=== PATIENT | female | born 2000 | race American Indian/Alaskan Native ===

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

== ENCOUNTER 2019-03-04 01:58 | Emergency (ER) | payer BC, OTHER ==
[2019-03-04 02:05] VITALS: BP 153/81
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
== END 2019-03-04 05:57 | disposition home or self-care (01) ==
LOC: ED 01:58
DX: M25.511 Pain in right shoulder (principal); J45.909 Unspecified asthma, uncomplicated; K21.9 Gastro-esophageal reflux disease without esophagitis; Z79.899 Other long term (current) drug therapy; V89.2XXA Person injured in unspecified motor-vehicle accident, traffic, initial encounter; Y93.89 Activity, other specified; Y92.488 Other paved roadways as the place of occurrence of the external cause; Y99.8 Other external cause status
CPT/HCPCS: 99283

== ENCOUNTER 2020-03-09 12:05 | Outpatient (CLI) | payer BC, OTHER | END 2020-03-09 12:06 | disposition home or self-care (01) | LOC: LAB 12:05 | PROVIDERS: ATTEND Nurse Practitioner Women's Health | DX: N92.5 Other specified irregular menstruation (principal) | CPT/HCPCS: 36415; 84702; 86900; 86901 ==

== ENCOUNTER 2020-03-10 16:03 | Emergency (ER) | payer BC, OTHER ==
--- NOTE | 2020-03-10 17:08 | Emergency Department Report ---
Blank Doc - Documentation Documentation: 19-year-old female that presents with vaginal bleeding and pelvic pain. staed is unsure how far along she is. This initial assessment/diagnostic orders/clinical plan/treatment(s) is/are subject to change based on patient's health status, clinical progression and re-assessment by fellow clinical providers in the ED. Further treatment and workup at subsequent clinical providers discretion. Patient/guardians urged not to elope from the ED as their condition may be serious if not clinically assessed and managed. Initial orders include: 1- Patient sent to [facility] for further evaluation and treatment 2- labs 3- UA 4- US OB
[2020-03-10 17:09] VITALS: BP 131/79
--- NOTE | 2020-03-10 18:33 | Ultrasound Report ---
FIRSTTRIMESTER OBSTETRIC ULTRASOUND HISTORY: Provided clinical history of vaginal bleeding COMPARISON: None. TECHNIQUE: Routine transabdominal and transvaginal OB ultrasound performed. FINDINGS: Uterus: Measures 3.6 x 5.0 x 5.2 cm. 10 mm endometrial thickness. Gestational Sac: 4 mm intrauterine cystic focus possibly representing a gestational sac. No definite intrauterine identified. Yolk Sac: Not visualized. Fetus/Embryo: Not visualized. Embryonic/ cardiac activity: None present. Placenta: Not visualized. Amniotic fluid volume: Subjectively appropriate for gestational age. Ovaries: The right ovary measures 3.9 x 2.3 x 2.8 cm. There is a possible 1.9 cm complex right ovari an focus which is difficult to separate from the normal ovarian parenchyma. Clinical significance unc ertain. The left ovary is normal in size and appearance with normal blood flow, measuring 3.0 x 1.6 x 2.1 cm. No definite corpus luteum identified. Additional findings: None. IMPRESSION Small intrauterine cystic focus possibly representing a gestational sac with ultrasound age of 5 week s and 1 day by gestational sac diameter. No definite embryonic structures are identified. Given this, ectopic cannot be fully excluded. Recommend short-term follow-up and serial beta hCG measu rements. Signer Name: Catalino Blackman MD Signed: 03/10/2020 6:28 PM Workstation Name: [id number]
[2020-03-10 19:26] LABS: Basophils % (Auto) 0.4 % (0.0-1.8); Eosinophils # (Auto) 0.1 K/mm3 (0.0-0.4); Eosinophils % (Auto) 0.8 % (0.0-4.3); Hematocrit 37.3 % (30.3-42.9); Hemoglobin 11.6 gm/dl (10.1-14.3); Lymphocytes # (Auto) 1.5 K/mm3 (1.2-5.4); Lymphocytes % (Auto) 13.1 % (13.4-35.0); Mean Corpuscular HGB Conc 31 % (30-34); Mean Corpuscular Volume 72 fl (79-97); Monocytes # (Auto) 0.6 K/mm3 (0.0-0.8); Platelet Count 350 K/mm3 (140-440); Red Blood Count 5.21 M/mm3 (3.65-5.03); Red Cell Distribution Width 14.9 % (13.2-15.2)
== END 2020-03-10 19:30 | disposition left against medical advice (07) ==
LOC: ED 16:03
DX: R10.2 Pelvic and perineal pain (principal); Z53.21 Procedure and treatment not carried out due to patient leaving prior to being seen by health care provider
CPT/HCPCS: 36415; 76801; 76817; 84702; 85025; 86900; 86901

== ENCOUNTER 2020-07-23 14:31 | Outpatient (CLI) | payer BC, OTHER | END 2020-07-23 14:32 | disposition home or self-care (01) | LOC: LAB 14:31 | PROVIDERS: ATTEND Nurse Practitioner Women's Health | DX: Z34.02 Encounter for supervision of normal first pregnancy, second trimester (principal); Z3A.15 15 weeks gestation of pregnancy | CPT/HCPCS: 36415; 82106 ==

== ENCOUNTER 2020-11-25 12:10 | Outpatient (CLI) | payer BC ==
[2020-11-30 09:08] LABS: HIV-2 Antibody Differentiation SEE SCANNED RESULT
[2020-11-30 09:09] LABS: HIV-1 Antibody Differentiation SEE SCANNED RESULT
== END 2020-11-25 12:11 | disposition home or self-care (01) ==
LOC: LAB 12:10
PROVIDERS: ATTEND Obstetrics & Gynecology
DX: Z34.03 Encounter for supervision of normal first pregnancy, third trimester (principal); Z3A.35 35 weeks gestation of pregnancy
CPT/HCPCS: 36415; 86592; 86689; 87116; 87591

== ENCOUNTER 2020-12-24 10:03 | Outpatient (CLI) | payer BC, MEDICAID | END 2020-12-24 15:59 | disposition home or self-care (01) | LOC: TRG 10:03 → APU 10:46 | CPT/HCPCS: 59025 ==

== ENCOUNTER 2020-12-25 01:29 | Inpatient (IN) | payer MEDICAID ==
[2020-12-25] MEDS ORDERED: ONDANSETRON 4 MG/2 ML INJ IV PRN ×2 (03:39→21:25)
[2020-12-25] MEDS ORDERED: OXYTOCIN 10 UNIT/1 ML INJ IM PRN (03:39)
[2020-12-25] MEDS ORDERED: ACETAMINOPHEN 325 MG TAB PO PRN (03:39)
[2020-12-25] MEDS ORDERED: fentaNYL 100 MCG/2 ML INJ IV PRN (03:39)
[2020-12-25] MEDS ORDERED: METHYLERGONOVINE MALEATE 0.2 MG/ML VIAL IM PRN (03:39)
[2020-12-25] MEDS ORDERED: TERBUTALINE 1 MG/1 ML INJ SUB-Q PRN (03:39)
[2020-12-25] MEDS ORDERED: NalbUPHINE 10 MG/1 ML INJ IV PRN (03:39)
[2020-12-25] MEDS ORDERED: LIDOCAINE (2%) 20 MG/1 ML VIAL 20 ML MDV INFILTRATI ONE (03:39)
[2020-12-25] MEDS ORDERED: NALOXONE 0.4 MG/1 ML INJ IV PRN (03:39)
[2020-12-25] MEDS ORDERED: ePHEDrine SULFATE 50 MG/1 ML INJ IV PRN ×2 (03:39→10:02)
[2020-12-25] MEDS ORDERED: MINERAL OIL 30 ML ORAL LIQD PO PRN (03:39)
--- NOTE | 2020-12-25 03:50 | History and Physical Report ---
History of Present Illness Date of examination: 12/25/20 Date of admission: 12/25/2020 Chief complaint: "my water broke" History of present illness: EDC Confirmation: 12/24/2020 Gestational Age: 40 1/7 weeks Past History : 2 Term Births: 0 Premature Births: 0 Living Children: 0 Para: 0 Mult. Births: 0 Prev : 0 Prev. attempt? 0 Aborta: 1 Elect. Ab: 0 Spont. Ab: 1 Ectopics: 0 # 1 Delivery date: 03/2020 Delivery type: SAB Past Medical History: Reviewed history from 03/09/2020 and no changes required: Asthma Past Surgical History: Reviewed history from 03/09/2020 and no changes required: Negative Past Surgical History Past Medical History Abnormal PAP: negative XIOMARA Exposure: negative Infertility: negative Uterine Anomaly: negative Uterine Surgery (not C/S): negative Other Gynecologic Problems: negative Social Hx: Patient is single works [place] Smoking History: Patient has never smoked. Infection History Hx of STD: chlamydia HIV Risk Eval: low risk Hepatitis B Risk Eval: low risk Personal hx. of genital herpes: no Partner hx. of genital herpes: no Varicella/Chicken Pox Status: Immunized TB Risk: no Genetic History Congenital Heart Defect: Mom: no Dad: no Oksana Disease: Mom: no Dad: no Thalassemia Mom: no Dad: no Neural Tube Defect Mom: no Dad: no Down's Syndrome Mom: yes Dad: no Darius-Sachs Mom: no Dad: no Sickle Cell Disease/Trait Mom: no Dad: no Hemophilia Mom: no Dad: no Muscular Dystrophy Mom: no Dad: no Cystic Fibrosis Mom: no Dad: no [place] Chorea Mom: no Dad: no Mental Retardation Mom: no Dad: no Fragile X Mom: no Dad: no Other Genetic/Chromosomal Disorder Mom: no Dad: no Child w/other defect Mom: no Dad: no Enviromental Exposures Xray Exposure: no Medication, drug, or alcohol use since LMP: no Chemical/Other Exposure: no Exposure to Cat Liter: no Hx of Parvovirus (Fifth Disease): no Occupational Exposure to Children: none Active Medications: VITAMINS () Current Allergies: * SHELLFISH (Critical) Past History Past Medical History: asthma (see HPI) Past Surgical History: no surgical history (see HPI) 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) Family/Genetic History: other (see HPI) Social history: no significant social history (see HPI), single - Obstetrical History Expected Date of Delivery: 12/24/20 Actual Gestation: 40 Week(s) 1 Day(s) : 2 Para: 0 Hx # Term Pregnancies: 0 Number of Pregnancies: 0 Spontaneous Abortions: 1 Induced : 0 Number of Living Children: 0 Medications and Allergies Allergies Allergy/AdvReac Type Severity Reaction Status Date / Time No Known Allergies Allergy Verified 03/04/19 02:03 Home Medications Medication Instructions Recorded Confirmed Last Taken Type Ketorolac [Toradol] 10 mg PO Q6H PRN #15 tablet 03/04/19 12/24/20 Unknown Rx methOCARBAMOL [Robaxin] 750 mg PO Q8H PRN #21 tablet 03/04/19 12/24/20 Unknown Rx Review of Systems All systems: negative Genitourinary: leakage of fluid, contractions - Vital Signs Vital signs: Vital Signs Pulse BP Pulse Ox 78 138/87 100 12/25/20 01:51 12/25/20 01:51 12/25/20 01:51 Temp Pulse Resp BP Pulse Ox 98.5 F 86 18 138/87 100 12/25/20 01:52 12/25/20 03:36 12/25/20 01:52 12/25/20 01:52 12/25/20 03:36 - Physical Exam Breasts: Positive: deferred Cardiovascular: Regular rate Lungs: Positive: Normal air movement Abdomen: Positive: normal appearance, soft Genitourinary (Female): Positive: normal external genitalia, normal perenium Vulva: both: normal Vagina: Positive: normal moisture Uterus: Positive: normal size, normal contour Anus/Rectum: Positive: normal perianal skin Extremities: Positive: normal - Obstetrical FHR: auscultation normal, category 1 Uterine Contraction Monitor Mode: External Cervical Dilatation: 1 (per Celsa AGRAWAL) Cervical Effacement Percentage: 70 station: -3 Uterine Contraction Frequency (min): 3-4 Uterine Contraction Pattern: Regular Uterine Tone Measurement Phase: Resting Results Abnormal lab results 12/25/20 Range/Units 02:06 Membranes Rupture Positive A (Negative) All other labs normal. GBS NEGATIVE on 12/02/20 Tests: (1) Profile I ([id number]) Order Note: Clinical Information: SRC:UR HBsAg Screen Negative Negative *1 RPR Non Reactive Non Reactive *2 Rubella Antibodies, IgG 1.35 index Immune >0.99 *3 Non-immune <0.90 Equivocal 0.90 - 0.99 Immune >0.99 ABO Grouping A *4 Rh Factor Positive *5 Please note: Prior records for this patient's ABO / Rh type are not available for additional verification. Antibody Screen Negative Negative *6 WBC 8.5 x10E3/uL 3.4-10.8 *7 RBC 5.14 x10E6/uL 3.77-5.28 *8 Hemoglobin 11.1 g/dL 11.1-15.9 *9 Hematocrit 37.3 % 34.0-46.6 *10 MCV [L] 73 fL 79-97 *11 MCH [L] 21.6 pg 26.6-33.0 *12 MCHC [L] 29.8 g/dL 31.5-35.7 *13 RDW 14.8 % 11.7-15.4 *14 Platelets 315 x10E3/uL 150-450 *15 Neutrophils 80 % Not Estab. *16 Lymphs 14 % Not Estab. *17 Monocytes 5 % Not Estab. *18 Eos 1 % Not Estab. *19 Basos 0 % Not Estab. *20 ! Immature Cells <No Reported Value> *21 Neutrophils (Absolute) 6.7 x10E3/uL 1.4-7.0 *22 Lymphs (Absolute) 1.2 x10E3/uL 0.7-3.1 *23 Monocytes(Absolute) 0.5 x10E3/uL 0.1-0.9 *24 Eos (Absolute) 0.1 x10E3/uL 0.0-0.4 *25 Baso (Absolute) 0.0 x10E3/uL 0.0-0.2 *26 ! Immature Granulocytes 0 % Not Estab. *27 ! Immature Grans (Abs) 0.0 x10E3/uL 0.0-0.1 *28 ! NRBC <No Reported Value> *29 Hematology Comments: <No Reported Value> *30 Tests: (2) HIV Ag/Ab with Reflex ([id number]) HIV Screen 4th Generation wRfx Non Reactive Non Reactive *31 Tests: (3) Gest. Diabetes 1-Hr Screen ([id number]) ! Gestational Diabetes Screen 83 mg/dL 65-139 *32 According to ADA, a glucose threshold of >139 mg/dL after 50-gram load identifies approximately 80% of women with gestational diabetes mellitus, while the sensitivity is further increased to approximately 90% by a threshold of >129 mg/dL. Tests: (4) HCV Antibody reflex to MAYLIN ([id number]) ! HCV Ab 0.1 s/co ratio 0.0-0.9 *33 Tests: (5) Interpretation: ([id number]) ! Interpretation: SPRCS *34 Negative Not infected with HCV, unless recent infection is suspected or other evidence exists to indicate HCV infection. Tests: (6) Urine Culture, Routine ([id number]) Urine Culture, Routine Final report *35 Tests: (7) Result ([id number]) ! Result 1 "Result Below..." *36 RESULT: Lactobacillus species Susceptibility not normally performed on this organism. 50,000-100,000 colony forming units per mL Assessment and Plan @ 40.1 wks EGA presents to triage with c/o SROM clear fluid @00:50 approx tonight and regular contractions. 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 CNM to bedside; Cat 1 FHT's, ctxq3-4mins. POC d/w pt and support person. Risks of rupture and benefits of labor augmentation discussed. Pt declines augmentation and verbalizes she would like to see if her body progresses on its own at this time. Orders placed in EMR. - Patient Problems (1) SROM (spontaneous rupture of membranes) Current Visit: Yes Status: Acute Plan to address problem: limit vaginal exams VS per protocol admit to labor draw labs and start IV anticipate (2) Active labor at term Current Visit: Yes Status: Acute (3) 40 weeks gestation of Current Visit: Yes Status: Acute (4) Asthma Current Visit: Yes Status: Acute
[2020-12-25] MEDS ORDERED: OXYTOCIN DRIP 30 UNITS/500 ML BAG IV SCH ×3 (04:00→22:00)
[2020-12-25 04:10] LABS: Hematocrit 32.4 % (30.3-42.9); Hemoglobin 10.5 gm/dl (10.1-14.3); Mean Corpuscular HGB Conc 32 % (30-34); Platelet Count 198 K/mm3 (140-440); Red Blood Count 4.78 M/mm3 (3.65-5.03); Red Cell Distribution Width 15.2 % (13.2-15.2)
[2020-12-25 04:29] LABS: Mean Corpuscular Volume 68 fl (79-97)
[2020-12-25] MEDS: LACTATED RINGERS 1,000 ML IV SCH ×3 (06:39→13:13)
--- NOTE | 2020-12-25 08:02 | Progress Note ---
Assessment and Plan A: 20 y.o. @ 40.1 wks, SROM clear fluid @ 0150 am. Cervical exam /-2. Epidural placed. P: Will start Pitocin per protocol. Continue to monitor fluid color and patient's temperature since SROM. Anticipate . Subjective - Subjective Date of service: 12/25/20 (Epidural has been placed. ) Principal diagnosis: IUP @ 40.1 wks, SROM @ 0150 am, clear fluid Patient reports: contractions (Still feeling some ctxs. ) Objective - Vital Signs Vital Signs: Vital Signs - 12hr 12/25/20 12/25/20 12/25/20 01:51 01:52 01:56 Temperature 98.5 F Pulse Rate 78 79 81 Respiratory 18 Rate Blood Pressure 138/87 Blood Pressure 138/87 [Right] O2 Sat by Pulse 100 99 99 Oximetry 12/25/20 12/25/20 12/25/20 02:01 02:06 02:11 Temperature Pulse Rate 76 77 81 Respiratory Rate Blood Pressure Blood Pressure [Right] O2 Sat by Pulse 100 100 100 Oximetry 12/25/20 12/25/20 12/25/20 02:16 02:21 02:26 Temperature Pulse Rate 73 74 80 Respiratory Rate Blood Pressure Blood Pressure [Right] O2 Sat by Pulse 100 99 100 Oximetry 12/25/20 12/25/20 12/25/20 02:31 02:36 02:41 Temperature Pulse Rate 81 83 83 Respiratory Rate Blood Pressure Blood Pressure [Right] O2 Sat by Pulse 100 100 99 Oximetry 12/25/20 12/25/20 12/25/20 02:46 02:51 02:56 Temperature Pulse Rate 74 74 77 Respiratory Rate Blood Pressure Blood Pressure [Right] O2 Sat by Pulse 100 100 99 Oximetry 12/25/20 12/25/20 12/25/20 03:01 03:06 03:11 Temperature Pulse Rate 82 76 78 Respiratory Rate Blood Pressure Blood Pressure [Right] O2 Sat by Pulse 97 100 100 Oximetry 12/25/20 12/25/20 12/25/20 03:16 03:21 03:26 Temperature Pulse Rate 69 78 85 Respiratory Rate Blood Pressure Blood Pressure [Right] O2 Sat by Pulse 99 100 100 Oximetry 12/25/20 12/25/20 12/25/20 03:36 03:46 04:44 Temperature 99.2 F Pulse Rate 86 83 74 Respiratory Rate Blood Pressure Blood Pressure [Right] O2 Sat by Pulse 100 99 Oximetry 12/25/20 12/25/20 12/25/20 04:49 04:54 04:59 Temperature Pulse Rate 73 72 85 Respiratory Rate Blood Pressure Blood Pressure [Right] O2 Sat by Pulse 99 98 99 Oximetry 12/25/20 12/25/20 12/25/20 05:04 05:09 05:14 Temperature Pulse Rate 75 75 71 Respiratory Rate Blood Pressure Blood Pressure [Right] O2 Sat by Pulse 99 99 99 Oximetry 12/25/20 12/25/20 12/25/20 05:19 05:24 05:29 Temperature Pulse Rate 67 61 67 Respiratory Rate Blood Pressure Blood Pressure [Right] O2 Sat by Pulse 99 100 98 Oximetry 12/25/20 12/25/20 12/25/20 05:34 05:39 05:44 Temperature Pulse Rate 75 64 76 Respiratory Rate Blood Pressure Blood Pressure [Right] O2 Sat by Pulse 99 100 100 Oximetry 12/25/20 12/25/20 12/25/20 05:49 05:54 05:59 Temperature Pulse Rate 68 63 79 Respiratory Rate Blood Pressure Blood Pressure [Right] O2 Sat by Pulse 100 99 100 Oximetry 12/25/20 12/25/20 12/25/20 06:04 06:18 06:23 Temperature Pulse Rate 71 95 H 85 Respiratory Rate Blood Pressure Blood Pressure [Right] O2 Sat by Pulse 99 99 100 Oximetry 12/25/20 12/25/20 12/25/20 06:28 06:33 06:38 Temperature Pulse Rate 82 94 H 85 Respiratory Rate Blood Pressure Blood Pressure [Right] O2 Sat by Pulse 100 100 100 Oximetry 12/25/20 12/25/20 12/25/20 06:43 06:48 06:53 Temperature Pulse Rate 79 97 H 102 H Respiratory Rate Blood Pressure Blood Pressure [Right] O2 Sat by Pulse 100 100 100 Oximetry 12/25/20 12/25/20 12/25/20 06:58 07:03 07:08 Temperature Pulse Rate 96 H 86 95 H Respiratory Rate Blood Pressure Blood Pressure [Right] O2 Sat by Pulse 99 100 100 Oximetry 12/25/20 12/25/20 12/25/20 07:13 07:18 07:19 Temperature Pulse Rate 105 H 99 H 96 H Respiratory Rate Blood Pressure 154/101 Blood Pressure [Right] O2 Sat by Pulse 100 99 Oximetry 12/25/20 12/25/20 12/25/20 07:23 07:28 07:31 Temperature Pulse Rate 97 H 101 H 113 H Respiratory Rate Blood Pressure 145/69 Blood Pressure [Right] O2 Sat by Pulse 99 100 Oximetry 12/25/20 12/25/20 12/25/20 07:33 07:35 07:37 Temperature Pulse Rate 92 H 77 91 H Respiratory Rate Blood Pressure 136/61 123/79 135/78 Blood Pressure [Right] O2 Sat by Pulse 100 Oximetry 12/25/20 12/25/20 12/25/20 07:38 07:39 07:41 Temperature Pulse Rate 77 93 H 90 Respiratory Rate Blood Pressure 144/78 131/74 Blood Pressure [Right] O2 Sat by Pulse 99 Oximetry 12/25/20 12/25/20 12/25/20 07:43 07:45 07:47 Temperature Pulse Rate 95 H 74 73 Respiratory Rate Blood Pressure 146/80 133/62 132/66 Blood Pressure [Right] O2 Sat by Pulse 100 Oximetry 12/25/20 12/25/20 12/25/20 07:48 07:49 07:51 Temperature Pulse Rate 73 70 73 Respiratory Rate Blood Pressure 132/63 131/63 Blood Pressure [Right] O2 Sat by Pulse 100 Oximetry 12/25/20 12/25/20 12/25/20 07:53 07:55 07:57 Temperature Pulse Rate 68 73 75 Respiratory Rate Blood Pressure 127/60 127/63 132/63 Blood Pressure [Right] O2 Sat by Pulse 99 Oximetry 12/25/20 12/25/20 07:58 07:59 Temperature Pulse Rate 86 75 Respiratory Rate Blood Pressure 140/65 Blood Pressure [Right] O2 Sat by Pulse 100 Oximetry - Exam Breasts: deferred Cardiovascular: Regular rate Lungs: Normal air movement Abdomen: Present: normal appearance, soft Vulva: both: normal Uterus: Present: normal FHR: category 1 Uterine Contraction Monitor Mode: External Cervical Dilatation: 2 Cervical Effacement Percentage: 80 station: -2 Uterine Contraction Pattern: Regular Uterine Tone Measurement Phase: Resting Uterine Contraction Intensity: Moderate - Labs Labs: Abnormal Labs 12/25/20 12/25/20 02:06 04:00 MCV 68 L MCH 22 L Membranes Rupture Positive A Laboratory Results - last 24 hr 12/25/20 12/25/20 12/25/20 02:06 04:00 04:00 WBC 10.5 RBC 4.78 Hgb 10.5 Hct 32.4 MCV 68 L MCH 22 L MCHC 32 RDW 15.2 Plt Count 198 Membranes Rupture Positive A Syphilis IgG Antibody Blood Type A POSITIVE Antibody Screen Negative 12/25/20 04:00 WBC RBC Hgb Hct MCV MCH MCHC RDW Plt Count Membranes Rupture Syphilis IgG Antibody Nonreactive Blood Type Antibody Screen
[2020-12-25] MEDS ORDERED: fentaNYL-BUPIV 2 MCG/ML-0.125% 200 MCG/100 ML BAG EPIDURAL ONE (08:29)
[2020-12-25] MEDS: fentaNYL-BUPIV 2 MCG/ML-0.125% 200 MCG/100 ML BAG EPIDURAL SCH ×2 (08:40→17:51)
--- NOTE | 2020-12-25 10:01 | Anesthesia Consultation ---
Anesthesia Consult and Med Hx Date of service: 12/25/20 - Airway Anesthetic Teeth Evaluation: Poor ROM Head & Neck: Adequate Mental/Hyoid Distance: Adequate Mallampati Class: Class III Intubation Access Assessment: Possibly Difficult - Pulmonary Exam CTA: Yes - Cardiac Exam Cardiac Exam: RRR - Pre-Operative Health Status ASA Pre-Surgery Classification: ASA3 Proposed Anesthetic Plan: Epidural - Pulmonary Hx Smoking: No Hx Asthma: Yes (last attack 2012) Hx Respiratory Symptoms: No SOB: No COPD: No Home Oxygen Therapy: No Hx Pneumonia: No Hx Sleep Apnea: No - Cardiovascular System Hx Hypertension: No Hx Coronary Artery Disease: No Hx Heart Attack/AMI: No Hx Angina: No Hx Percutaneous Transluminal Coronary Angioplasty (PTCA): No Hx Cardia Arrhythmia: No Hx Pacemaker: No Hx Internal Defibrillator: No Hx Valvular Heart Disease: No Hx Heart Murmur: No Hx Peripheral Vascular Disease: No - Central Nervous System Hx Neuromuscular Disorder: No Hx Seizures: No CVA: No Hx Back Pain: Yes Hx Psychiatric Problems: No - Gastrointestinal Hx Ulcer: No Hx Gastroesophageal Reflux Disease: Yes - Endocrine Hx Renal Disease: No Hx End Stage Renal Disease: No Hx Cirrhosis: No Hx Liver Disease: No Hx Insulin Dependent Diabetes: No Hx Non-Insulin Dependent Diabetes: No Hx Thyroid Disease: No Hx Hypothyroidism: No Hx Hyperthyroidism: No - Hematic Hx Anemia: No Hx Sickle Cell Disease: Yes (Trait) - Other Systems Hx Alcohol Use: No Hx Substance Use: No Hx Cancer: No Hx Obesity: Yes
[2020-12-25] MEDS ORDERED: NALOXONE 2 MG/2 ML INJ IV PRN (10:02)
--- NOTE | 2020-12-25 10:02 | Progress Note ---
Labor Epidural - Labor Epidural Start Time: 07:24 Stop Time: 07:58 Performed by:: LAURA TORRES Procedure: Patient is requesting a laboring epidural for laboring pain. Patient IDed, H&P reviewed, all questions and concerns were answered, and consent was signed. Timeout was performed at bedside. Patient in sitting position. Sterile prep and drape was performed. [3] ml of 1% lidocaine skin wheal at L[3]- L [4]. 18- gauge Qello epidural needle was advanced to loss of resistance with saline technique 9cm. Negative CSF negative blood. Epidural catheter advanced to [14] centimeters. [NEGATIVE] Aspiration [NEGATIVE] test dose. Sterile dressing applied. Patient tolerated procedure.
[2020-12-25] MEDS: OXYTOCIN DRIP 30 UNITS/500 ML BAG IV SCH ×2 (10:04→13:15)
--- NOTE | 2020-12-25 12:04 | Progress Note ---
Assessment and Plan A: 20 y.o. @ 40.1 wks in active labor. Cervical exam . Some periods of category 2 monitor tracing (Pitocin turned off), but now category 1. P: Will restart Pitocin in about 30 minutes. Anticipate . Subjective - Subjective Date of service: 12/25/20 Principal diagnosis: IUP @ 40.1 wks, SROM @ 0150 am, clear fluid Objective - Vital Signs Vital Signs: Vital Signs - 12hr 12/25/20 12/25/20 12/25/20 01:51 01:52 01:56 Temperature 98.5 F Pulse Rate 78 79 81 Respiratory 18 Rate Blood Pressure 138/87 Blood Pressure 138/87 [Right] O2 Sat by Pulse 100 99 99 Oximetry 12/25/20 12/25/20 12/25/20 02:01 02:06 02:11 Temperature Pulse Rate 76 77 81 Respiratory Rate Blood Pressure Blood Pressure [Right] O2 Sat by Pulse 100 100 100 Oximetry 12/25/20 12/25/20 12/25/20 02:16 02:21 02:26 Temperature Pulse Rate 73 74 80 Respiratory Rate Blood Pressure Blood Pressure [Right] O2 Sat by Pulse 100 99 100 Oximetry 12/25/20 12/25/20 12/25/20 02:31 02:36 02:41 Temperature Pulse Rate 81 83 83 Respiratory Rate Blood Pressure Blood Pressure [Right] O2 Sat by Pulse 100 100 99 Oximetry 12/25/20 12/25/20 12/25/20 02:46 02:51 02:56 Temperature Pulse Rate 74 74 77 Respiratory Rate Blood Pressure Blood Pressure [Right] O2 Sat by Pulse 100 100 99 Oximetry 12/25/20 12/25/20 12/25/20 03:01 03:06 03:11 Temperature Pulse Rate 82 76 78 Respiratory Rate Blood Pressure Blood Pressure [Right] O2 Sat by Pulse 97 100 100 Oximetry 12/25/20 12/25/20 12/25/20 03:16 03:21 03:26 Temperature Pulse Rate 69 78 85 Respiratory Rate Blood Pressure Blood Pressure [Right] O2 Sat by Pulse 99 100 100 Oximetry 12/25/20 12/25/20 12/25/20 03:36 03:46 04:44 Temperature 99.2 F Pulse Rate 86 83 74 Respiratory Rate Blood Pressure Blood Pressure [Right] O2 Sat by Pulse 100 99 Oximetry 12/25/20 12/25/20 12/25/20 04:49 04:54 04:59 Temperature Pulse Rate 73 72 85 Respiratory Rate Blood Pressure Blood Pressure [Right] O2 Sat by Pulse 99 98 99 Oximetry 12/25/20 12/25/20 12/25/20 05:04 05:09 05:14 Temperature Pulse Rate 75 75 71 Respiratory Rate Blood Pressure Blood Pressure [Right] O2 Sat by Pulse 99 99 99 Oximetry 12/25/20 12/25/20 12/25/20 05:19 05:24 05:29 Temperature Pulse Rate 67 61 67 Respiratory Rate Blood Pressure Blood Pressure [Right] O2 Sat by Pulse 99 100 98 Oximetry 12/25/20 12/25/20 12/25/20 05:34 05:39 05:44 Temperature Pulse Rate 75 64 76 Respiratory Rate Blood Pressure Blood Pressure [Right] O2 Sat by Pulse 99 100 100 Oximetry 12/25/20 12/25/20 12/25/20 05:49 05:54 05:59 Temperature Pulse Rate 68 63 79 Respiratory Rate Blood Pressure Blood Pressure [Right] O2 Sat by Pulse 100 99 100 Oximetry 12/25/20 12/25/20 12/25/20 06:04 06:18 06:23 Temperature Pulse Rate 71 95 H 85 Respiratory Rate Blood Pressure Blood Pressure [Right] O2 Sat by Pulse 99 99 100 Oximetry 12/25/20 12/25/20 12/25/20 06:28 06:33 06:38 Temperature Pulse Rate 82 94 H 85 Respiratory Rate Blood Pressure Blood Pressure [Right] O2 Sat by Pulse 100 100 100 Oximetry 12/25/20 12/25/20 12/25/20 06:43 06:48 06:53 Temperature Pulse Rate 79 97 H 102 H Respiratory Rate Blood Pressure Blood Pressure [Right] O2 Sat by Pulse 100 100 100 Oximetry 12/25/20 12/25/20 12/25/20 06:58 07:00 07:03 Temperature 98.6 F Pulse Rate 96 H 86 Respiratory 18 Rate Blood Pressure Blood Pressure [Right] O2 Sat by Pulse 99 100 Oximetry 12/25/20 12/25/20 12/25/20 07:08 07:13 07:18 Temperature Pulse Rate 95 H 105 H 99 H Respiratory Rate Blood Pressure Blood Pressure [Right] O2 Sat by Pulse 100 100 99 Oximetry 0712/25/20 12/25/20 07:19 07:23 07:28 Temperature Pulse Rate 96 H 97 H 101 H Respiratory Rate Blood Pressure 154/101 Blood Pressure [Right] O2 Sat by Pulse 99 100 Oximetry 12/25/20 12/25/20 12/25/20 07:31 07:33 07:35 Temperature Pulse Rate 113 H 92 H 77 Respiratory Rate Blood Pressure 145/69 136/61 123/79 Blood Pressure [Right] O2 Sat by Pulse 100 Oximetry 12/25/20 12/25/20 12/25/20 07:37 07:38 07:39 Temperature Pulse Rate 91 H 77 93 H Respiratory Rate Blood Pressure 135/78 144/78 Blood Pressure [Right] O2 Sat by Pulse 99 Oximetry 12/25/20 12/25/20 12/25/20 07:41 07:43 07:45 Temperature Pulse Rate 90 95 H 74 Respiratory Rate Blood Pressure 131/74 146/80 133/62 Blood Pressure [Right] O2 Sat by Pulse 100 Oximetry 12/25/20 12/25/20 12/25/20 07:47 07:48 07:49 Temperature Pulse Rate 73 73 70 Respiratory Rate Blood Pressure 132/66 132/63 Blood Pressure [Right] O2 Sat by Pulse 100 Oximetry 12/25/20 12/25/20 12/25/20 07:51 07:53 07:55 Temperature Pulse Rate 73 68 73 Respiratory Rate Blood Pressure 131/63 127/60 127/63 Blood Pressure [Right] O2 Sat by Pulse 99 Oximetry 12/25/20 12/25/20 12/25/20 07:57 07:58 07:59 Temperature Pulse Rate 75 86 75 Respiratory Rate Blood Pressure 132/63 140/65 Blood Pressure [Right] O2 Sat by Pulse 100 Oximetry 12/25/20 12/25/20 12/25/20 08:01 08:03 08:05 Temperature Pulse Rate 68 74 83 Respiratory Rate Blood Pressure 135/77 144/81 131/72 Blood Pressure [Right] O2 Sat by Pulse 100 Oximetry 12/25/20 12/25/20 12/25/20 08:07 08:08 08:09 Temperature Pulse Rate 71 79 65 Respiratory Rate Blood Pressure 128/74 134/74 Blood Pressure [Right] O2 Sat by Pulse 100 Oximetry 12/25/20 12/25/20 12/25/20 08:11 08:13 08:15 Temperature Pulse Rate 68 68 67 Respiratory Rate Blood Pressure 130/74 134/82 130/77 Blood Pressure [Right] O2 Sat by Pulse 99 Oximetry 12/25/20 12/25/20 12/25/20 08:17 08:18 08:19 Temperature Pulse Rate 80 71 69 Respiratory Rate Blood Pressure 135/76 130/73 Blood Pressure [Right] O2 Sat by Pulse 99 Oximetry 12/25/20 12/25/20 12/25/20 08:23 08:25 08:27 Temperature Pulse Rate 88 86 75 Respiratory Rate Blood Pressure 152/98 135/66 140/57 Blood Pressure [Right] O2 Sat by Pulse 99 Oximetry 12/25/20 12/25/20 12/25/20 08:28 08:29 08:31 Temperature Pulse Rate 71 75 75 Respiratory Rate Blood Pressure 138/61 150/65 Blood Pressure [Right] O2 Sat by Pulse 98 Oximetry 12/25/20 12/25/20 12/25/20 08:33 08:38 08:43 Temperature Pulse Rate 69 71 83 Respiratory Rate Blood Pressure Blood Pressure [Right] O2 Sat by Pulse 99 100 100 Oximetry 12/25/20 12/25/20 12/25/20 08:48 08:53 08:58 Temperature Pulse Rate 83 83 70 Respiratory Rate Blood Pressure Blood Pressure [Right] O2 Sat by Pulse 97 100 99 Oximetry 12/25/20 12/25/20 12/25/20 09:02 09:03 09:08 Temperature Pulse Rate 73 93 H 69 Respiratory Rate Blood Pressure 130/73 Blood Pressure [Right] O2 Sat by Pulse 100 99 Oximetry 12/25/20 12/25/20 12/25/20 09:13 09:18 09:23 Temperature Pulse Rate 67 87 71 Respiratory Rate Blood Pressure Blood Pressure [Right] O2 Sat by Pulse 99 100 99 Oximetry 12/25/20 12/25/20 12/25/20 09:28 09:33 09:38 Temperature Pulse Rate 74 70 68 Respiratory Rate Blood Pressure 134/65 Blood Pressure [Right] O2 Sat by Pulse 98 98 99 Oximetry 12/25/20 12/25/20 12/25/20 09:41 09:43 09:48 Temperature Pulse Rate 74 68 85 Respiratory Rate Blood Pressure Blood Pressure [Right] O2 Sat by Pulse 93 100 99 Oximetry 12/25/20 12/25/20 12/25/20 09:53 09:58 10:03 Temperature Pulse Rate 84 91 H 71 Respiratory Rate Blood Pressure 141/55 Blood Pressure [Right] O2 Sat by Pulse 100 100 99 Oximetry 12/25/20 12/25/20 12/25/20 10:08 10:13 10:18 Temperature Pulse Rate 72 89 80 Respiratory Rate Blood Pressure Blood Pressure [Right] O2 Sat by Pulse 100 100 99 Oximetry 12/25/20 12/25/20 12/25/20 10:23 10:28 10:32 Temperature Pulse Rate 96 H 75 62 Respiratory Rate Blood Pressure 109/54 Blood Pressure [Right] O2 Sat by Pulse 100 98 Oximetry 12/25/20 12/25/20 12/25/20 10:33 10:38 10:43 Temperature Pulse Rate 65 61 64 Respiratory Rate Blood Pressure Blood Pressure [Right] O2 Sat by Pulse 99 99 98 Oximetry 12/25/20 12/25/20 12/25/20 10:48 10:53 10:58 Temperature Pulse Rate 59 L 60 62 Respiratory Rate Blood Pressure Blood Pressure [Right] O2 Sat by Pulse 98 98 98 Oximetry 12/25/20 12/25/20 12/25/20 11:03 11:08 11:13 Temperature Pulse Rate 60 62 73 Respiratory Rate Blood Pressure 98/48 Blood Pressure [Right] O2 Sat by Pulse 97 97 99 Oximetry 12/25/20 12/25/20 12/25/20 11:18 11:23 11:28 Temperature Pulse Rate 63 63 59 L Respiratory Rate Blood Pressure Blood Pressure [Right] O2 Sat by Pulse 98 100 100 Oximetry 12/25/20 12/25/20 12/25/20 11:32 11:33 11:38 Temperature Pulse Rate 63 61 63 Respiratory Rate Blood Pressure 113/53 Blood Pressure [Right] O2 Sat by Pulse 100 100 Oximetry 12/25/20 12/25/20 12/25/20 11:43 11:48 11:53 Temperature Pulse Rate 58 L 58 L 59 L Respiratory Rate Blood Pressure Blood Pressure [Right] O2 Sat by Pulse 100 100 100 Oximetry - Exam Narrative Exam: monitor tracing with some periods of category 2: late decelerations noted along with minimal variability. Minimal variability and late decelerations resolved after Pitocin turned off and patient repositioned in bed. Breasts: deferred Cardiovascular: Regular rate Lungs: Normal air movement Abdomen: Present: normal appearance, soft Vulva: both: normal Uterus: Present: normal FHR: category 1 (Some periods of category 2. ) Uterine Contraction Monitor Mode: External Cervical Dilatation: 6 Cervical Effacement Percentage: 90 station: -1 Uterine Contraction Pattern: Regular Uterine Contraction Intensity: Moderate - Labs Labs: Abnormal Labs 12/25/20 12/25/20 02:06 04:00 MCV 68 L MCH 22 L Membranes Rupture Positive A Laboratory Results - last 24 hr 12/25/20 12/25/20 12/25/20 02:06 04:00 04:00 WBC 10.5 RBC 4.78 Hgb 10.5 Hct 32.4 MCV 68 L MCH 22 L MCHC 32 RDW 15.2 Plt Count 198 Membranes Rupture Positive A Syphilis IgG Antibody Blood Type A POSITIVE Antibody Screen Negative 12/25/20 04:00 WBC RBC Hgb Hct MCV MCH MCHC RDW Plt Count Membranes Rupture Syphilis IgG Antibody Nonreactive Blood Type Antibody Screen
--- NOTE | 2020-12-25 14:07 | Progress Note ---
Assessment and Plan A: 20 y.o. @ 40.1 wks, active labor. Cervical exam 9/100/0. Category 2 monitor tracing at time with return to category1 after interventions. P: Pitocin off. Will re-evaluate progress of labor in 2 hours. Anticipate . Subjective - Subjective Date of service: 12/25/20 Principal diagnosis: IUP @ 40.1 wks, SROM @ 0150 am, clear fluid, active labor Objective - Vital Signs Vital Signs: Vital Signs - 12hr 12/25/20 12/25/20 12/25/20 02:01 02:06 02:11 Temperature Pulse Rate 76 77 81 Respiratory Rate Blood Pressure O2 Sat by Pulse 100 100 100 Oximetry 12/25/20 12/25/20 12/25/20 02:16 02:21 02:26 Temperature Pulse Rate 73 74 80 Respiratory Rate Blood Pressure O2 Sat by Pulse 100 99 100 Oximetry 12/25/20 12/25/20 12/25/20 02:31 02:36 02:41 Temperature Pulse Rate 81 83 83 Respiratory Rate Blood Pressure O2 Sat by Pulse 100 100 99 Oximetry 12/25/20 12/25/20 12/25/20 02:46 02:51 02:56 Temperature Pulse Rate 74 74 77 Respiratory Rate Blood Pressure O2 Sat by Pulse 100 100 99 Oximetry 12/25/20 12/25/20 12/25/20 03:01 03:06 03:11 Temperature Pulse Rate 82 76 78 Respiratory Rate Blood Pressure O2 Sat by Pulse 97 100 100 Oximetry 12/25/20 12/25/20 12/25/20 03:16 03:21 03:26 Temperature Pulse Rate 69 78 85 Respiratory Rate Blood Pressure O2 Sat by Pulse 99 100 100 Oximetry 12/25/20 12/25/20 12/25/20 03:36 03:46 04:44 Temperature 99.2 F Pulse Rate 86 83 74 Respiratory Rate Blood Pressure O2 Sat by Pulse 100 99 Oximetry 12/25/20 12/25/20 12/25/20 04:49 04:54 04:59 Temperature Pulse Rate 73 72 85 Respiratory Rate Blood Pressure O2 Sat by Pulse 99 98 99 Oximetry 12/25/20 12/25/20 12/25/20 05:04 05:09 05:14 Temperature Pulse Rate 75 75 71 Respiratory Rate Blood Pressure O2 Sat by Pulse 99 99 99 Oximetry 12/25/20 12/25/20 12/25/20 05:19 05:24 05:29 Temperature Pulse Rate 67 61 67 Respiratory Rate Blood Pressure O2 Sat by Pulse 99 100 98 Oximetry 12/25/20 12/25/20 12/25/20 05:34 05:39 05:44 Temperature Pulse Rate 75 64 76 Respiratory Rate Blood Pressure O2 Sat by Pulse 99 100 100 Oximetry 12/25/20 12/25/20 12/25/20 05:49 05:54 05:59 Temperature Pulse Rate 68 63 79 Respiratory Rate Blood Pressure O2 Sat by Pulse 100 99 100 Oximetry 12/25/20 12/25/20 12/25/20 06:04 06:18 06:23 Temperature Pulse Rate 71 95 H 85 Respiratory Rate Blood Pressure O2 Sat by Pulse 99 99 100 Oximetry 12/25/20 12/25/20 12/25/20 06:28 06:33 06:38 Temperature Pulse Rate 82 94 H 85 Respiratory Rate Blood Pressure O2 Sat by Pulse 100 100 100 Oximetry 12/25/20 12/25/20 12/25/20 06:43 06:48 06:53 Temperature Pulse Rate 79 97 H 102 H Respiratory Rate Blood Pressure O2 Sat by Pulse 100 100 100 Oximetry 12/25/20 12/25/20 12/25/20 06:58 07:00 07:03 Temperature 98.6 F Pulse Rate 96 H 86 Respiratory 18 Rate Blood Pressure O2 Sat by Pulse 99 100 Oximetry 12/25/20 12/25/20 12/25/20 07:08 07:13 07:18 Temperature Pulse Rate 95 H 105 H 99 H Respiratory Rate Blood Pressure O2 Sat by Pulse 100 100 99 Oximetry 12/25/20 12/25/20 12/25/20 07:19 07:23 07:28 Temperature Pulse Rate 96 H 97 H 101 H Respiratory Rate Blood Pressure 154/101 O2 Sat by Pulse 99 100 Oximetry 12/25/20 12/25/20 12/25/20 07:31 07:33 07:35 Temperature Pulse Rate 113 H 92 H 77 Respiratory Rate Blood Pressure 145/69 136/61 123/79 O2 Sat by Pulse 100 Oximetry 12/25/20 12/25/20 12/25/20 07:37 07:38 07:39 Temperature Pulse Rate 91 H 77 93 H Respiratory Rate Blood Pressure 135/78 144/78 O2 Sat by Pulse 99 Oximetry 12/25/20 12/25/20 12/25/20 07:41 07:43 07:45 Temperature Pulse Rate 90 95 H 74 Respiratory Rate Blood Pressure 131/74 146/80 133/62 O2 Sat by Pulse 100 Oximetry 12/25/20 12/25/20 12/25/20 07:47 07:48 07:49 Temperature Pulse Rate 73 73 70 Respiratory Rate Blood Pressure 132/66 132/63 O2 Sat by Pulse 100 Oximetry 12/25/20 12/25/20 12/25/20 07:51 07:53 07:55 Temperature Pulse Rate 73 68 73 Respiratory Rate Blood Pressure 131/63 127/60 127/63 O2 Sat by Pulse 99 Oximetry 12/25/20 12/25/20 12/25/20 07:57 07:58 07:59 Temperature Pulse Rate 75 86 75 Respiratory Rate Blood Pressure 132/63 140/65 O2 Sat by Pulse 100 Oximetry 12/25/20 12/25/20 12/25/20 08:01 08:03 08:05 Temperature Pulse Rate 68 74 83 Respiratory Rate Blood Pressure 135/77 144/81 131/72 O2 Sat by Pulse 100 Oximetry 12/25/20 12/25/20 12/25/20 08:07 08:08 08:09 Temperature Pulse Rate 71 79 65 Respiratory Rate Blood Pressure 128/74 134/74 O2 Sat by Pulse 100 Oximetry 12/25/20 12/25/20 12/25/20 08:11 08:13 08:15 Temperature Pulse Rate 68 68 67 Respiratory Rate Blood Pressure 130/74 134/82 130/77 O2 Sat by Pulse 99 Oximetry 12/25/20 12/25/20 12/25/20 08:17 08:18 08:19 Temperature Pulse Rate 80 71 69 Respiratory Rate Blood Pressure 135/76 130/73 O2 Sat by Pulse 99 Oximetry 12/25/20 12/25/20 12/25/20 08:23 08:25 08:27 Temperature Pulse Rate 88 86 75 Respiratory Rate Blood Pressure 152/98 135/66 140/57 O2 Sat by Pulse 99 Oximetry 12/25/20 12/25/20 12/25/20 08:28 08:29 08:31 Temperature Pulse Rate 71 75 75 Respiratory Rate Blood Pressure 138/61 150/65 O2 Sat by Pulse 98 Oximetry 12/25/20 12/25/20 12/25/20 08:33 08:38 08:43 Temperature Pulse Rate 69 71 83 Respiratory Rate Blood Pressure O2 Sat by Pulse 99 100 100 Oximetry 12/25/20 12/25/20 12/25/20 08:48 08:53 08:58 Temperature Pulse Rate 83 83 70 Respiratory Rate Blood Pressure O2 Sat by Pulse 97 100 99 Oximetry 12/25/20 12/25/20 12/25/20 09:02 09:03 09:08 Temperature Pulse Rate 73 93 H 69 Respiratory Rate Blood Pressure 130/73 O2 Sat by Pulse 100 99 Oximetry 12/25/20 12/25/20 12/25/20 09:13 09:18 09:23 Temperature Pulse Rate 67 87 71 Respiratory Rate Blood Pressure O2 Sat by Pulse 99 100 99 Oximetry 12/25/20 12/25/20 12/25/20 09:28 09:33 09:38 Temperature Pulse Rate 74 70 68 Respiratory Rate Blood Pressure 134/65 O2 Sat by Pulse 98 98 99 Oximetry 12/25/20 12/25/20 12/25/20 09:41 09:43 09:48 Temperature Pulse Rate 74 68 85 Respiratory Rate Blood Pressure O2 Sat by Pulse 93 100 99 Oximetry 12/25/20 12/25/20 12/25/20 09:53 09:58 10:03 Temperature Pulse Rate 84 91 H 71 Respiratory Rate Blood Pressure 141/55 O2 Sat by Pulse 100 100 99 Oximetry 12/25/20 12/25/20 12/25/20 10:08 10:13 10:18 Temperature Pulse Rate 72 89 80 Respiratory Rate Blood Pressure O2 Sat by Pulse 100 100 99 Oximetry 12/25/20 12/25/20 12/25/20 10:23 10:28 10:32 Temperature Pulse Rate 96 H 75 62 Respiratory Rate Blood Pressure 109/54 O2 Sat by Pulse 100 98 Oximetry 12/25/20 12/25/20 12/25/20 10:33 10:38 10:43 Temperature Pulse Rate 65 61 64 Respiratory Rate Blood Pressure O2 Sat by Pulse 99 99 98 Oximetry 12/25/20 12/25/20 12/25/20 10:48 10:53 10:58 Temperature Pulse Rate 59 L 60 62 Respiratory Rate Blood Pressure O2 Sat by Pulse 98 98 98 Oximetry 12/25/20 12/25/20 12/25/20 11:03 11:08 11:13 Temperature Pulse Rate 60 62 73 Respiratory Rate Blood Pressure 98/48 O2 Sat by Pulse 97 97 99 Oximetry 12/25/20 12/25/20 12/25/20 11:18 11:23 11:28 Temperature Pulse Rate 63 63 59 L Respiratory Rate Blood Pressure O2 Sat by Pulse 98 100 100 Oximetry 12/25/20 12/25/20 12/25/20 11:32 11:33 11:38 Temperature Pulse Rate 63 61 63 Respiratory Rate Blood Pressure 113/53 O2 Sat by Pulse 100 100 Oximetry 12/25/20 12/25/20 12/25/20 11:43 11:48 11:53 Temperature Pulse Rate 58 L 58 L 59 L Respiratory Rate Blood Pressure O2 Sat by Pulse 100 100 100 Oximetry 12/25/20 12/25/20 12/25/20 11:58 12:03 12:08 Temperature Pulse Rate 66 60 71 Respiratory Rate Blood Pressure 114/57 O2 Sat by Pulse 99 100 100 Oximetry 12/25/20 12/25/20 12/25/20 12:13 12:18 12:23 Temperature Pulse Rate 65 65 67 Respiratory Rate Blood Pressure O2 Sat by Pulse 100 100 100 Oximetry 12/25/20 12/25/20 12/25/20 12:28 12:33 12:34 Temperature Pulse Rate 65 62 61 Respiratory Rate Blood Pressure 132/60 O2 Sat by Pulse 100 100 Oximetry 12/25/20 12/25/20 12/25/20 12:38 12:43 12:48 Temperature Pulse Rate 64 63 75 Respiratory Rate Blood Pressure O2 Sat by Pulse 100 100 100 Oximetry 12/25/20 12/25/20 12/25/20 12:53 12:58 13:02 Temperature Pulse Rate 58 L 55 L 56 L Respiratory Rate Blood Pressure 111/51 O2 Sat by Pulse 100 100 Oximetry 12/25/20 12/25/20 12/25/20 13:03 13:08 13:13 Temperature Pulse Rate 57 L 56 L 56 L Respiratory Rate Blood Pressure O2 Sat by Pulse 100 100 100 Oximetry 12/25/20 12/25/20 12/25/20 13:18 13:23 13:28 Temperature Pulse Rate 59 L 61 59 L Respiratory Rate Blood Pressure O2 Sat by Pulse 98 98 97 Oximetry 12/25/20 12/25/20 12/25/20 13:33 13:38 13:43 Temperature Pulse Rate 58 L 76 55 L Respiratory Rate Blood Pressure 118/60 O2 Sat by Pulse 99 99 100 Oximetry 12/25/20 12/25/20 12/25/20 13:48 13:53 13:58 Temperature Pulse Rate 90 69 63 Respiratory Rate Blood Pressure O2 Sat by Pulse 100 100 100 Oximetry - Exam Narrative Exam: Pt has deceleration into the 90's. Pitocin turned off, pt repositioned in bed, O2 via face mask. FHR returned to baseline of 115-120 after interventions. Breasts: deferred Cardiovascular: Regular rate Lungs: Normal air movement Abdomen: Present: normal appearance, soft Vulva: both: normal FHR: category 2 (Deceleration noted into the 90's. Returned to baseline of 115- 120 with interventions.) Uterine Contraction Monitor Mode: External Cervical Dilatation: 9 Cervical Effacement Percentage: 100 station: 0 Uterine Contraction Pattern: Regular Uterine Tone Measurement Phase: Resting Uterine Contraction Intensity: Moderate - Labs Labs: Abnormal Labs 12/25/20 12/25/20 02:06 04:00 MCV 68 L MCH 22 L Membranes Rupture Positive A Laboratory Results - last 24 hr 12/25/20 12/25/20 12/25/20 02:06 04:00 04:00 WBC 10.5 RBC 4.78 Hgb 10.5 Hct 32.4 MCV 68 L MCH 22 L MCHC 32 RDW 15.2 Plt Count 198 Membranes Rupture Positive A Syphilis IgG Antibody Blood Type A POSITIVE Antibody Screen Negative 12/25/20 04:00 WBC RBC Hgb Hct MCV MCH MCHC RDW Plt Count Membranes Rupture Syphilis IgG Antibody Nonreactive Blood Type Antibody Screen
--- NOTE | 2020-12-25 17:45 | Event Note ---
Date: 12/25/20 (Trial of pushing. ) Pt is /+1. Attempted a trial of pushing. Pt with dense epidural, which was turned down some. Will allow patient to labor down and re-evaluate in 1 hour.
[2020-12-25] MEDS ORDERED: miSOPROStol 200 MCG TAB ONE (20:52)
--- NOTE | 2020-12-25 21:24 | Procedure Note ---
OB Delivery Note - Delivery Date of Delivery: 12/25/20 Needle Control Cheniller: RUBI ROBLES - Vaginal Delivery presentation: vertex Delivery position: OA Intrapartum events: mult. late decelerations, mult.variable deceleratio Delivery induction: none Delivery augmentation: pitocin Delivery monitor: external FHT, external uterine Route of delivery: Delivery placenta: spontaneous Delivery cord: 3 umbilical vessels Episiotomy: none Delivery laceration: 2nd degree Delivery repair: vicryl Anesthesia: epidural Delivery comments: of viable female infant. Infant to mother's abdomen for skin to skin. Cord cut, clamped and handed to [facility] team for evaluation. Spontaneous delivery of placenta, intact, complete, 3 vessels noted. Some brisk bleeding noted after delivery of placenta. Stopped with Pitocin and 800mcg of Cytotec. Perineum and vagina inspected, 2nd degree laceration noted. Repaired with 3-0 Vicryl. QBL: 477ml Apgars 8,9. Infant weight 8-3. Sponges and instruments counted X2 with RN and correct X2. and mother left in stable, good condition in care of RN. - A at 1 minute: 8 at 5 minutes: 9 Infant Gender: Female ( weight 8-3)
[2020-12-25] MEDS ORDERED: miSOPROStol 100 MCG TAB PR PRN (21:25)
[2020-12-25] MEDS ORDERED: CARBOPROST TROMETHAMINE 250 MCG/1 ML INJ IM PRN (21:25)
[2020-12-25] MEDS ORDERED: MAGNESIUM HYDROXIDE (MOM) ORAL LIQD UDC PO PRN (21:25)
[2020-12-25] MEDS ORDERED: PROMETHAZINE 25 MG TAB PO PRN (21:25)
[2020-12-25] MEDS ORDERED: LANOLIN/ZINC/DIMETHICONE (LANSINOH) 7 GM TP PRN ×2 (21:25)
[2020-12-25] MEDS ORDERED: oxyCODONE /ACETAMINOPHEN 5-325MG TAB PO PRN (21:25)
[2020-12-25] MEDS ORDERED: ACETAMINOPHEN 500 MG TAB PO PRN (21:25)
[2020-12-25] MEDS ORDERED: LOPERAMIDE 2 MG CAP PO PRN (21:25)
[2020-12-25] MEDS ORDERED: PROMETHAZINE 25 MG RECT SUPP PR PRN (21:25)
[2020-12-25] MEDS ORDERED: diphenhydrAMINE 25 MG CAP PO PRN (21:25)
[2020-12-25] MEDS ORDERED: WITCH HAZEL/ GLYCERIN PAD TP PRN (21:25)
[2020-12-25] MEDS ORDERED: BENZOCAINE/MENTHOL 20/0.5% TOP SPRAY 56 GM TP PRN (21:25)
[2020-12-25] MEDS: IBUPROFEN 800 MG TAB PO SCH (23:33)
[2020-12-25] MEDS: DOCUSATE SODIUM 100 MG CAP PO SCH (23:33)
[2020-12-26] MEDS: IBUPROFEN 800 MG TAB PO SCH ×3 (05:29→22:40)
[2020-12-26] MEDS ORDERED: TETANUS,DIPH,PERTUSS(ACELL) VACCINE 0.5 ML SYRINGE IM ONE (06:00)
[2020-12-26] MEDS: PRENATAL VIT27-FE FUMARATE-FOLIC ACID VIT TAB PO SCH (10:12)
[2020-12-26 10:28] LABS: Hematocrit 25.7 % (30.3-42.9); Hemoglobin 8.1 gm/dl (10.1-14.3)
--- NOTE | 2020-12-26 10:41 | Post Anesthesia Evaluation ---
- Post Anesthesia Evaluation Patient Participated: Yes Airway Patent: Yes Stable Respiratory Function: Yes Nausea/Vomiting: No Temp > 96.8F: Yes Pain Manageable: Yes Adequeate Hydration: Yes Anesthesia Complications: No Block Receding Appropriately: Yes Patient on Ventilator: No
--- NOTE | 2020-12-26 12:40 | Progress Note ---
Assessment and Plan A: 20 y.o. s/p . P: Continue with care. Anticipate discharge home on 12/27. Subjective - Subjective Date of service: 12/26/20 (Pt doing well. ) Principal diagnosis: s/p Patient reports: appetite normal, voiding normally, pain well controlled, flatus, ambulating normally : doing well Objective - Vital Signs Latest vital signs: Vital Signs Temp Pulse Resp BP BP Pulse Ox 12/26/20 08:05 98.7 F 85 20 133/62 99 12/26/20 06:29 18 12/26/20 05:29 18 12/26/20 03:24 98.8 F 91 H 20 134/68 96 12/26/20 00:33 18 12/25/20 23:33 18 12/25/20 23:06 99.8 F H 95 H 18 143/62 99 12/25/20 21:45 96 H 126/72 12/25/20 21:30 96 H 131/70 12/25/20 21:15 84 129/65 12/25/20 21:00 95 H 123/58 12/25/20 20:46 84 134/61 12/25/20 19:48 66 98 12/25/20 19:47 55 L 85 12/25/20 19:43 74 100 12/25/20 19:38 83 100 12/25/20 19:33 76 100 12/25/20 19:28 68 100 12/25/20 19:23 68 100 12/25/20 19:18 71 100 12/25/20 19:13 72 100 12/25/20 19:11 65 94 12/25/20 19:08 71 100 12/25/20 19:03 75 100 12/25/20 18:58 74 100 12/25/20 18:53 84 99 12/25/20 18:48 74 100 12/25/20 18:43 72 100 12/25/20 18:38 72 100 12/25/20 18:37 98.5 F 73 20 123/65 100 12/25/20 18:33 74 100 12/25/20 18:32 70 140/71 12/25/20 18:28 73 100 12/25/20 18:23 70 100 12/25/20 18:18 72 100 12/25/20 18:13 75 100 12/25/20 18:08 71 100 12/25/20 18:03 74 123/59 99 12/25/20 17:58 73 100 12/25/20 17:53 70 99 12/25/20 17:48 71 98 12/25/20 17:43 71 98 12/25/20 17:38 68 99 12/25/20 17:34 96 H 85 12/25/20 17:33 81 100 12/25/20 17:32 71 117/55 12/25/20 17:28 104 H 100 12/25/20 17:26 68 L 12/25/20 17:23 81 100 12/25/20 17:18 100 H 99 12/25/20 17:13 71 99 12/25/20 17:08 74 100 12/25/20 17:03 67 100 12/25/20 17:02 66 129/60 12/25/20 16:58 67 99 12/25/20 16:53 82 100 12/25/20 16:48 70 100 12/25/20 16:43 75 100 12/25/20 16:38 81 100 12/25/20 16:33 74 100 12/25/20 16:32 70 117/58 12/25/20 16:28 72 99 12/25/20 16:23 77 99 12/25/20 16:20 78 90 12/25/20 16:18 75 96 12/25/20 16:13 81 100 12/25/20 16:08 73 100 12/25/20 16:03 70 100 12/25/20 16:02 87 118/61 12/25/20 15:58 62 100 12/25/20 15:53 64 100 12/25/20 15:48 64 100 12/25/20 15:43 70 100 12/25/20 15:38 66 100 12/25/20 15:34 61 130/61 12/25/20 15:33 64 100 12/25/20 15:28 69 100 12/25/20 15:23 64 100 12/25/20 15:18 60 100 12/25/20 15:13 68 100 12/25/20 15:08 61 100 12/25/20 15:03 59 L 100 12/25/20 15:02 63 129/58 12/25/20 14:58 63 100 12/25/20 14:53 63 100 12/25/20 14:48 63 100 12/25/20 14:43 64 100 12/25/20 14:38 64 100 12/25/20 14:33 69 100 12/25/20 14:32 60 126/59 12/25/20 14:28 65 100 12/25/20 14:23 79 100 12/25/20 14:18 68 100 12/25/20 14:13 66 100 12/25/20 14:08 64 100 12/25/20 14:03 64 100 12/25/20 14:02 66 129/61 12/25/20 13:58 63 100 12/25/20 13:53 69 100 12/25/20 13:48 90 100 12/25/20 13:43 55 L 100 12/25/20 13:38 76 99 12/25/20 13:33 58 L 118/60 99 12/25/20 13:28 59 L 97 12/25/20 13:23 61 98 12/25/20 13:18 59 L 98 12/25/20 13:13 56 L 100 12/25/20 13:08 56 L 100 12/25/20 13:03 57 L 100 12/25/20 13:02 56 L 111/51 12/25/20 12:58 55 L 100 12/25/20 12:53 58 L 100 12/25/20 12:48 75 100 12/25/20 12:43 63 100 12/25/20 12:38 64 100 Intake and Output 12/25/20 12/26/20 12/26/20 22:59 06:59 14:59 Intake Total 0.683 240 240 Output Total 800 450 Balance 0.683 -560 -210 Intake: IV 0.683 PITOCin/NS 30 UNIT/500ML 0.683 30 units In 500 ml @ 4 mls/hr IV TITR DELONTE Rx#: [id number] Oral 240 240 Output: Urine 800 450 Void 800 450 Other: Total, Intake Amount 240 240 Total, Output Amount 500 450 # Voids Void 3 # Bowel Movements 1 1 - Exam Narrative Exam: Assisted pt with . Discussed positions, normal milk flow, and what to expect when discharged home. Breasts: Present: normal Cardiovascular: Present: Regular rate Lungs: Present: Normal air movement Abdomen: Present: normal appearance, soft Uterus: Present: normal, firm Extremities: Present: normal - Labs Labs: Abnormal lab results 12/26/20 Range/Units 09:38 Hgb 8.1 L (10.1-14.3) gm/dl Hct 25.7 L D (30.3-42.9) %
[2020-12-26] MEDS: DOCUSATE SODIUM 100 MG CAP PO SCH ×2 (13:50→22:40)
[2020-12-26] MEDS: FERROUS SULFATE 325 MG TAB PO SCH ×2 (14:45→22:40)
[2020-12-27] MEDS: IBUPROFEN 800 MG TAB PO SCH ×4 (05:53→22:59)
--- NOTE | 2020-12-27 09:29 | Discharge Summary ---
Providers - Providers Date of Admission: 12/25/20 03:39 Date of discharge: 12/27/20 (pt desires discharge home today) Attending physician: GALINDO COTTRELL 12/25/20 21:27 Consult to Director International [CONS] Routine Reason For Exam: assistance with , SNS Primary care physician: GALINDO COTTRELL Hospitalization Reason for admission: active labor, rupture of membranes, IUP at term Delivery: Episiotomy: none Laceration: 2nd degree Other procedures: none complications: none Discharge diagnosis: IUP at term delivered baby: female Condition at discharge: Good Disposition: DC-01 TO HOME OR SELFCARE - Discharge Diagnoses (1) SROM (spontaneous rupture of membranes) Status: Acute (2) Active labor at term Status: Acute (3) 40 weeks gestation of Status: Acute (4) Asthma Status: Acute Plan - Discharge Medications Prescriptions: Docusate Sodium [Colace] 100 mg PO BID PRN #60 capsule PRN Reason: Constipation Ferrous Sulfate [Feosol 325 MG tab] 325 mg PO QDAY #30 tablet Ibuprofen [Motrin] 800 mg PO Q8HR PRN #30 tablet PRN Reason: Pain, Moderate (4-6) - Provider Discharge Summary Activity: routine, no sex for 6 weeks, no heavy lifting 4 weeks, no strenuous exercise Diet: routine Instructions: routine Additional instructions: [] Smoking cessation referral if applicable(refer to patient education folder for contact #) [] Refer to [facility]'s [facility] Booklet Call your doctor immediately for: * Fever > 100.5 * Heavy vaginal bleeding ( >1 pad per hour) * Severe persistent headache * Shortness of breath * Reddened, hot, painful area to leg or breast * Drainage or odor from incision. * Keep incision clean and dry at all times and follow doctor's instructions regarding bathing/showering Congratulations! Please call [phone] and make an appointment in 1 week for your blood pressure check up in the office. Please also make an appointment in 4 weeks for your visit. Thank you! - Follow up plan Follow up: GALINDO COTTRELL MD [Primary Care Provider] - 7 Days
[2020-12-27] MEDS: FERROUS SULFATE 325 MG TAB PO SCH ×2 (10:37→22:59)
[2020-12-27] MEDS: DOCUSATE SODIUM 100 MG CAP PO SCH ×2 (10:37→22:59)
[2020-12-27] MEDS: PRENATAL VIT27-FE FUMARATE-FOLIC ACID VIT TAB PO SCH (10:38)
[2020-12-27 16:53] VITALS: BP 134/56
== END 2020-12-27 23:33 | disposition home or self-care (01) | DRG 775 ==
LOC: TRG 01:29 → APU 01:35 → LD 03:39 → TRG 03:39 → OBSVTOIN 03:39 → OB 23:22
PROVIDERS: ADMIT Obstetrics & Gynecology; ATTEND Obstetrics & Gynecology
PROC: 10E0XZZ Delivery of Products of Conception, External Approach (ICD-10-PCS; principal; 2020-12-25)
PROC: 0KQM0ZZ Repair Perineum Muscle, Open Approach (ICD-10-PCS; 2020-12-25)
PROC: 3E0R3BZ Introduction of Anesthetic Agent into Spinal Canal, Percutaneous Approach (ICD-10-PCS; 2020-12-25)
PROC: 00HU33Z Insertion of Infusion Device into Spinal Canal, Percutaneous Approach (ICD-10-PCS; 2020-12-25)
PROC: 3E0234Z Introduction of Serum, Toxoid and Vaccine into Muscle, Percutaneous Approach (ICD-10-PCS; 2020-12-26)
DX: O76 Abnormality in fetal heart rate and rhythm complicating labor and delivery (principal); O99.52 Diseases of the respiratory system complicating childbirth; Z20.822 Contact with and (suspected) exposure to COVID-19; J45.909 Unspecified asthma, uncomplicated; O70.1 Second degree perineal laceration during delivery; O99.62 Diseases of the digestive system complicating childbirth; O99.214 Obesity complicating childbirth; O99.02 Anemia complicating childbirth; D57.3 Sickle-cell trait; K21.9 Gastro-esophageal reflux disease without esophagitis; Z3A.40 40 weeks gestation of pregnancy; Z37.0 Single live birth; Z23 Encounter for immunization
CPT/HCPCS: 36415; 59025; 84112; 85014; 85018; 85027; 86592; 86850; 86900; 86901; 99211; G0378; G0463; J2590; J3010; J7120; U0003